=== PATIENT | female | born 1995 | race American Indian/Alaskan Native ===

== ENCOUNTER 2021-05-28 19:32 | Emergency (ER) | payer SELFPAY ==
[2021-05-28] MEDS ORDERED: BUTALB/ACETAMINOPHEN/CAFFEINE TAB PO ONE (21:00)
[2021-05-28] MEDS ORDERED: ONDANSETRON 4 MG ODT TAB PO ONE (21:00)
[2021-05-28 21:17] LABS: Basophils % (Auto) 0.5 % (0.0-1.8); Eosinophils # (Auto) 0.1 K/mm3 (0.0-0.4); Eosinophils % (Auto) 1.2 % (0.0-4.3); Hematocrit 40.1 % (30.3-42.9); Lymphocytes # (Auto) 2.1 K/mm3 (1.2-5.4); Lymphocytes % (Auto) 26.3 % (13.4-35.0); Mean Corpuscular HGB Conc 32 % (30-34); Mean Corpuscular Volume 77 fl (79-97); Monocytes # (Auto) 0.5 K/mm3 (0.0-0.8); Monocytes % (Auto) 6.3 % (0.0-7.3); Platelet Count 235 K/mm3 (140-440); Red Blood Count 5.21 M/mm3 (3.65-5.03); Red Cell Distribution Width 15.5 % (13.2-15.2)
[2021-05-28 21:39] LABS: Alanine Aminotransferase 18 units/L (7-56); Albumin 4.7 g/dL (3.9-5); Blood Urea Nitrogen 10 mg/dL (7-17); Hemolysis Index 19
[2021-05-28 21:46] LABS: BUN/Creatinine Ratio 17
[2021-05-28] MEDS ORDERED: SODIUM CHLORIDE 0.9% 1000 ML 1,000 ML IV ONE (22:56)
--- NOTE | 2021-05-28 22:59 | Emergency Department Report ---
ED General Adult HPI - General Chief complaint: Nausea/Vomiting/Diarrhea Stated complaint: HEADACHE Time Seen by Provider: 05/28/21 22:49 Source: patient Mode of arrival: Ambulatory Limitations: No Limitations - History of Present Illness Initial comments: 25-year-old female patient presents emergency department with complaints of headache, myalgias, nausea, and vomiting for 3 days. No preceding fall, trauma, injury. Headache is poorly localized, described as a "throbbing" sensation. Pain is worse with bright lights and loud noises. Patient has taken Tylenol, Motrin, and muscle relaxants with limited relief. Patient does not have a prior history of recurring headaches. There is no family history of headaches or neurological issues. Patient does not use any form of pharmacological contraception. Last menstrual cycle was 2 weeks ago. Patient is vaccinated. Denies fever, chills, rash, seizure, syncope, mental status changes, abdominal pain, diarrhea. Denies all other complaints at this time. Severity scale (0 -10): 5 - Related Data Previous Rx's Medication Instructions Recorded Last Taken Type Butalb/Acetaminophen/Caffeine 1 cap PO Q4H PRN #20 cap 05/29/21 Unknown Rx [Fioricet 50-300-40 mg CAP] Naproxen 500 mg PO BID #20 tablet 05/29/21 Unknown Rx Ondansetron [Zofran Odt] 4 mg PO Q4H #20 tab.rapdis 05/29/21 Unknown Rx Allergies Allergy/AdvReac Type Severity Reaction Status Date / Time No Known Allergies Allergy Verified 05/29/21 00:40 ED Review of Systems ROS: Stated complaint: HEADACHE Other details as noted in HPI Other: GENERAL: Negative for fever, chills, weight change, anorexia, fatigue. ENT: Negative for ear pain, difficulty hearing, sore throat, nasal congestion, epistaxis. CARDIOVASCULAR: Negative for chest pain, palpitations, lower extremity swelling. PULMONARY: Negative for cough, dyspnea, wheezing, orthopnea, cyanosis. GASTROINTESTINAL: Positive for nausea and vomiting. MUSCULOSKELETAL: Positive for myalgias. NEUROLOGICAL: Positive for headache. INTEGUMENTARY: Negative for erythema, rash, diaphoresis, laceration, ecchymosis. HEMATOLOGICAL: Negative for hemoptysis, hematemesis, hematochezia, hematuria. PSYCHIATRIC: Negative for hallucinations, suicidal ideation, homicidal ideation, anxiety, depression. ED Past Medical Hx - Medications Home Medications: Home Medications Medication Instructions Recorded Confirmed Last Taken Type Butalb/Acetaminophen/Caffeine 1 cap PO Q4H PRN #20 cap 05/29/21 Unknown Rx [Fioricet 50-300-40 mg CAP] Naproxen 500 mg PO BID #20 tablet 05/29/21 Unknown Rx Ondansetron [Zofran Odt] 4 mg PO Q4H #20 tab.rapdis 05/29/21 Unknown Rx ED Physical Exam - General Limitations: No Limitations - Other Other exam information: General: Awake and alert. No acute distress. Head: Atraumatic, normocephalic. Eyes: EOMI. Pupils are equal and round, reactive to light, no nystagmus. Normal sclera and conjunctiva. No temporal artery tenderness or palpable cord. ENT: Oral mucosa is moist. Normal pharyngeal exam. Neck: Supple. No lymphadenopathy. Pulmonary: No respiratory distress. Clear to auscultation bilaterally. Cardiac: Regular rate and rhythm. Pulses are palpable and equal bilaterally. No lower extremity cyanosis or edema. Skin: Warm and dry. No rashes. Abdomen: Soft, non-tender, non-protuberant. No guarding, rigidity, or rebound. Bowel sounds are normal. No organomegaly or masses noted. Back: Normal alignment. No CVA tenderness. Extremities: Symmetrical. Full range of motion intact. Neurological: Alert and oriented, appropriately interactive, no focal deficits. Psych: Cooperative. Appropriate mood and affect. Speech is evenly metered. Thoughts are logically construed. ED Course Vital Signs 05/28/21 05/28/21 20:34 21:45 Temperature 98.9 F Pulse Rate 81 Respiratory 16 16 Rate Blood Pressure 144/84 [Right] O2 Sat by Pulse 99 Oximetry ED Medical Decision Making - Lab Data Result diagrams: 05/28/21 20:53 05/28/21 20:53 - Medical Decision Making Differential diagnosis including but not limited to: tension headache, migraine headache, intracranial hemorrhage, meningitis, encephalitis, temporal arteritis, pseudotumor cerebri, cervicogenic headache Patient presents with acute atraumatic headache. After a thorough history and physical examination, it has been determined that the patient meets all of the following criteria: age 15-40, neurologically intact, full range of motion of the neck without pain/stiffness, no loss of consciousness, onset of headache was within the last 14 days and did not occur during physical exertion, and the pain did not peak instantly. The patient has no history of any of the following conditions: head trauma/fall in the last 7 days, prior aneurysm, prior subarachnoid hemorrhage, known intracranial lesion, and has experienced no more than 3 headaches of the same character and intensity in the last 6 months. It has been explained to the patient that based on the Ambler Subarachnoid Hemorrhage Rule, imaging is not indicated at this time. It has been explained to the patient that the Ambler rules are an adjunct decision-making tool and are not designed to replace clinical judgment. Patient has been given appropriate analgesia and will be reassessed prior to discharge home. The patient is resting comfortably and states symptoms have improved. The patient is alert, talkative, interactive and in no distress. The patient is neurovascularly intact and ambulatory in emergency department. History, exam, diagnostic testing, and current condition do not suggest worrisome pathology to warrant further testing, emergent intervention, admission, or specialist evaluation at this point. Additional testing such as CT imaging or lumbar puncture is not indicated at this time, but should be considered if symptoms worsen or recur. Discussed findings, presumptive diagnosis, need for follow-up and specific signs/symptoms that should prompt immediate return to the emergency department. Instructions were explained in detail to the patient in addition to giving written discharge information. Patient expressed understanding and was given the opportunity to ask questions, all of which were satisfactorily answered prior to discharge home. Critical care attestation.: If time is entered above; I have spent that time in minutes in the direct care of this critically ill patient, excluding procedure time. ED Disposition Clinical Impression: Headache Qualifiers: Headache type: unspecified Headache chronicity pattern: unspecified pattern Intractability: not intractable Qualified Code(s): R51.9 - Headache, unspecified Disposition: DC-01 TO HOME OR SELFCARE Is pt being admited?: No Does the pt Need Aspirin: No Condition: Stable Instructions: Cervicogenic Headache Additional Instructions: Take Naprosyn with food as directed for pain. Take Fioricet as directed for pain. Take Reglan as directed for nausea. Rest. Drink plenty of fluids. Avoid bright lights and loud noises which may worsen your pain. Follow-up with primary care provider this week. Call tomorrow to schedule an appointment. See referral information below. Return to the emergency department immediately for new or worsening symptoms. Specifically, return to the emergency department immediately for fever, seizure, rash, loss of consciousness, neck stiffness, or any other concerns. Prescriptions: Butalb/Acetaminophen/Caffeine [Fioricet 50-300-40 mg CAP] 1 cap PO Q4H PRN #20 cap PRN Reason: Headache Naproxen 500 mg PO BID #20 tablet Ondansetron [Zofran Odt] 4 mg PO Q4H #20 tab.rapdis Referrals: KAYLYNN HERNANDEZ MD [Staff Physician] - 3-5 Days [facility] [Provider Group] - 3-5 Days Forms: Work/School Release Form(ED)
[2021-05-29] MEDS ORDERED: MAGNESIUM SULFATE 1 GM in SODIUM CHLORIDE 0.9% 50 ML IV ONE (00:38)
[2021-05-29] MEDS ORDERED: PROCHLORPERAZINE EDISYLATE 10 MG/2 ML VIAL IV ONE (00:38)
[2021-05-29] MEDS ORDERED: diphenhydrAMINE 50 MG/ML VIAL IV ONE (00:38)
[2021-05-29] MEDS ORDERED: dexAMETHasone 20 MG/5 ML VIAL IV ONE (00:38)
[2021-05-29 05:57] VITALS: BP 132/77
== END 2021-05-29 03:30 | disposition home or self-care (01) ==
LOC: ED 19:32
DX: R51.9 Headache, unspecified (principal); R11.2 Nausea with vomiting, unspecified; Z79.899 Other long term (current) drug therapy
CPT/HCPCS: 36415; 80053; 83690; 84703; 85025; 96365; 96366; 96375; 99283; J0780; J1100; J1200; J3475; J7030; Q0162